=== PATIENT | female | born 1995 | race Caucasian/White ===

== ENCOUNTER 2018-01-11 22:41 | Emergency (ER) | payer OTHER | END 2018-01-11 23:02 | disposition home or self-care (01) | LOC: SCSER 22:41 | DX: H93.11 Tinnitus, right ear (principal) | CPT/HCPCS: 99282 ==

== ENCOUNTER 2018-06-24 12:10 | Emergency (ER) | payer OTHER ==
[2018-06-24 12:55] LABS: Pregnancy Test - Urine (BHCG) Negative (Negative); Pregu Control Background? CLEAR/WHITE (CLR/WHITE); Pregu Control Bar Appear? YES (CONTROL BAR); Specific Gravity 1.026 (1.002-1.036)
[2018-06-24 13:37] LABS: MONO NEGATIVE CONTROL ZONE White (Negative) (White); MONO POSITIVE CONTROL Pink Line (Positive) (PINK/RED); Mononucleosis NEGATIVE (NEGATIVE)
--- NOTE | 2018-06-24 14:00 | RAD ---
PA AND LATERAL CHEST: Date: 07/12/18 HISTORY: Cough for several days. Blood-tinged sputum. FINDINGS: The cardiac silhouette and pulmonary vasculature are within normal limits. The lungs are clear. [place] us structures are intact. IMPRESSION: No acute cardiopulmonary process. POS: [facility]
== END 2018-06-24 13:02 | disposition home or self-care (01) ==
LOC: SCSER 12:10
DX: J20.9 Acute bronchitis, unspecified (principal)
CPT/HCPCS: 71046; 81025; 86308; 99281